=== PATIENT | female | born 1990 | race African-American/Black ===

== ENCOUNTER 2020-04-28 09:11 | Emergency (ER) | payer MEDICAID ==
[~2020-04-28] VITALS: Ht 175.3 cm; Wt 143.3 kg
[2020-04-28 09:15] VITALS: BP 153/94
--- NOTE | 2020-04-28 09:19 | NUR ---
Ambulated to bed 4
--- NOTE | 2020-04-28 09:25 | NUR ---
29 Y/O F C/C HEAD INJURY DUE TO FALL THIS MORNING WHILE SHOWERING. PER PT SLIPPED ON SOAP AND FELL HITTING HEAD ON WALL, DENIES LOC. PT DESCRIBES "WEIRD FEELING, FLUID LIKE SENSATION", PAIN 12/09. PT PRESENTS A/OX4,EUPNIC,AMBULATORY. NEURO WNL. PUPILS PERRLA. NKA. HX ANXIETY ATTACKS. NO RX. NO NVD. SIDE RAIL X1.
[2020-04-28] MEDS ORDERED: ACETAMINOPHEN 325 MG TAB PO ONE (09:30)
--- NOTE | 2020-04-28 10:09 | NUR ---
Pt given specimen cup for collection of urine. Pt ambulated to restroom with steady gait
--- NOTE | 2020-04-28 10:17 | NUR ---
Pt states she is unable to give urine, but will sign waiver stating she is allowing CT to be completed without test completed. CT made aware.
[2020-04-28 11:27] VITALS: BP 145/90
== END 2020-04-28 11:27 | disposition home or self-care (01) ==
LOC: MED 09:11
DX: S00.01XA Abrasion of scalp, initial encounter (principal); S06.9X0A Unspecified intracranial injury without loss of consciousness, initial encounter; W01.198A Fall on same level from slipping, tripping and stumbling with subsequent striking against other object, initial encounter; Y93.89 Activity, other specified; Y92.89 Other specified places as the place of occurrence of the external cause; Y99.8 Other external cause status
CPT/HCPCS: 70450; 99284

== ENCOUNTER 2020-08-04 20:49 | Emergency (ER) | payer MEDICAID ==
[~2020-08-04] VITALS: Ht 172.7 cm; Wt 147.0 kg
[2020-08-04 20:55] VITALS: BP 113/62
--- NOTE | 2020-08-04 20:58 | NUR ---
TO LOBBY A/W BED AMBULATORY
--- NOTE | 2020-08-04 23:05 | NUR ---
SEEN AND EXAMINED BY ROMEL WITH ORDER, CARRIED OUT
[2020-08-04] MEDS ORDERED: KETOROLAC 60 MG/2 ML VIAL IM ONE (23:15)
--- NOTE | 2020-08-04 23:30 | NUR ---
MEDICATED PER ERMDS ORDER, TOLERATED WELL.
[2020-08-05 01:20] VITALS: BP 113/62
--- NOTE | 2020-08-05 01:20 | NUR ---
Patient discharged with v/s stable. Written and verbal after care instructions given and explained. Patient alert, oriented and verbalized understanding of instructions. Ambulatory with steady gait. All questions addressed prior to discharge. ID band removed. Patient advised to follow up with PMD. Rx of MOTRIN,, NORCO given. Patient educated on indication of medication including possible reaction and side effects. Opportunity to ask questions provided and answered.
== END 2020-08-05 01:30 | disposition home or self-care (01) ==
LOC: MED 20:49
DX: R51.9 Headache, unspecified (principal)
CPT/HCPCS: 96372; 99283; J1885

== ENCOUNTER 2021-04-24 23:33 | Emergency (ER) | payer MEDICAID ==
[~2021-04-24] VITALS: Ht 172.7 cm; Wt 147.4 kg
[2021-04-24 23:35] VITALS: BP 120/71
--- NOTE | 2021-04-24 23:35 | NUR ---
TO BED AMBULATORY
--- NOTE | 2021-04-24 23:53 | NUR ---
Dr. Morley examining patient.
[2021-04-25] MEDS ORDERED: FLUC150T PO (00:01)
[2021-04-25] MEDS ORDERED: METR500T1 PO (00:01)
[2021-04-25] MEDS ORDERED: NAPR-54 PO (00:05)
[2021-04-25 00:17] VITALS: BP 120/71
== END 2021-04-25 00:17 | disposition home or self-care (01) ==
LOC: MED 23:33
DX: L73.2 Hidradenitis suppurativa (principal); Z79.899 Other long term (current) drug therapy
CPT/HCPCS: 93005; 99283

== ENCOUNTER 2021-06-18 19:30 | Emergency (ER) | payer MEDICAID ==
[~2021-06-18] VITALS: Ht 172.7 cm; Wt 147.0 kg
[~2021-06-18 19:30] MED LIST: FLUC150T PO; METR500T1 PO; NAPR-54 PO
[2021-06-18 19:36] VITALS: BP 112/68
--- NOTE | 2021-06-18 21:32 | NUR ---
PT AMBULATED TO BED #4
--- NOTE | 2021-06-18 21:40 | NUR ---
RECEIVED IN BED 4 WITH C/O BILATERAL UNDERARM ABSCESS X 1 MONTH ON RIGHT AND 3 YEARS ON RIGHT. RECEIVED BACTRIM LAST WEEK WHILE IN [place]. AFEBRILE. PT STATES SHE HAS BEEN UNDER A LOT OF STRESS AND MIGHT BE EXPERIENCING ANXIETY, PT SAYS SHE HAS SLIGHT TIGHTNESS IN CHEST AND HAS ABDOMINAL PAIN
--- NOTE | 2021-06-18 22:02 | NUR ---
DR GASPAR AT BEDSIDE FOR EXAM
--- NOTE | 2021-06-18 23:19 | NUR ---
Patient discharged with v/s stable. Written and verbal after care instructions given and explained. Patient verbalized understanding. Ambulatory with steady gait. All questions addressed prior to discharge. Advised to follow up with PMD.
[2021-06-18 23:30] VITALS: BP 134/78
== END 2021-06-18 23:19 | disposition home or self-care (01) ==
LOC: MED 19:30
DX: L73.2 Hidradenitis suppurativa (principal); Z79.1 Long term (current) use of non-steroidal anti-inflammatories (NSAID); Z79.899 Other long term (current) drug therapy; Z79.2 Long term (current) use of antibiotics
CPT/HCPCS: 99282

== ENCOUNTER 2021-11-17 13:40 | Emergency (ER) | payer MEDICAID ==
[~2021-11-17] VITALS: Ht 172.7 cm; Wt 139.7 kg
[2021-11-17 13:49] VITALS: BP 138/84
--- NOTE | 2021-11-17 14:01 | NUR ---
apple juice given for 72 blood glucose pt states she only had some tuna and crackers today
[2021-11-17] MEDS ORDERED: hydrOXYzine PAMOATE 25 MG CAP PO ONE (14:35)
--- NOTE | 2021-11-17 15:10 | NUR ---
31yo F PT IS AAOX4 AND C/O OF DIZZINESS AND LIGHT HEADEDNESS. PT FEELS "LIKE SHES ABOUT TO PASS OUT " PT STATES FEELING ANXIOUS AND IS CURRENTLY SEEING THERAPIST TO HELP COPE WITH ANXIETY. PT DENIES SOB . PT STATES SHE USUALLY EATS WELL BUT HAS EATEN LESS THAN USUAL TODAY DUE TO LIGHTHEADEDNESS. PT STATES HAVING EPISODES OF LIGHT PAIN THROUGHOUT BODY BUT CURRENTLY HAS NO PAIN. PT DENIES FEVER OR D/V. NKA
[2021-11-17 15:12] LABS: BASOPHILS % (AUTO) 0.3 % (0.0-2.0); EOSINOPHILS % (AUTO) 0.6 % (0.0-4.0); HEMATOCRIT 40.6 % (36-48); HEMOGLOBIN 13.4 g/dL (12.0-16.0); LYMPHOCYTES # (AUTO) 2.7 K/uL (2.5-16.5); LYMPHOCYTES % (AUTO) 39.4 % (20.5-51.1); MEAN CORPUSCULAR HEMOGLOBIN 29 pg (27-31); MEAN CORPUSCULAR HGB CONC 33 g/dL (33-37); MEAN CORPUSCULAR VOLUME 87.2 fL (80-94); MONOCYTES # (AUTO) 0.3 K/uL (0.8-1.0); MONOCYTES % (AUTO) 4.3 % (1.7-9.3); NEUTROPHILS # (AUTO) 3.8 K/uL (1.8-7.7); NEUTROPHILS % (AUTO) 55.4 % (42.2-75.2); PLATELET COUNT (AUTO) 219 K/uL (140-450); RED BLOOD CELL COUNT(AUTO) 4.66 MIL/uL (4.20-5.40); RED CELL DISTRIBUTION WIDTH 15.1 % (11.6-13.7)
--- NOTE | 2021-11-17 15:20 | NUR ---
31/F BIB SELF WITH C/O DIZZINESS, NAUSEA AND LIGHT HEADEDNESS FOR "MONTHS" BUT STATES WORSENING OVER THE LAST 3 DAYS. PATIENT STATES SHE HAS BEEN HAVING FEELINGS OF ANXIETY, STATING SHE HAS SEEN A THERAPIST TO AID. PATIENT DENIES CP, SOB, V/D.
[2021-11-17 16:06] LABS: ALBUMIN 3.5 g/dL (3.4-5.0); ANION GAP 11.8 (8-16); ASPARTATE AMINOTRANSFERASE 13 U/L (15-37); CHLORIDE 104 mmol/L (98-107); CREATININE 0.8 mg/dL (0.6-1.3); GFR ARICAN-AMERICAN 108 mL/min (>90); GLUCOSE 86 mg/dL (74-106); POTASSIUM 3.8 mmol/L (3.5-5.1); SODIUM SERUM 138 mmol/L (136-145); THYROID STIMULATING HORMONE 1.23 uIU/mL (0.34-3.74); TOTAL BILIRUBIN 0.5 mg/dL (0.0-1.0); UREA NITROGEN, BLOOD 7 mg/dL (7-18)
--- NOTE | 2021-11-17 16:20 | NUR ---
DR RIVERA AT BEDSIDE
[2021-11-17] MEDS ORDERED: MELA5SGL PO (16:35)
[2021-11-17] MEDS ORDERED: PANT40EC PO (16:35)
[2021-11-17 17:53] LABS: BILIRUBIN,URINE NEGATIVE (NEGATIVE); BLOOD, URINE NEGATIVE (NEGATIVE); COLOR,URINE YELLOW (YELLOW); LEUKOCYTE ESTERASE ,URINE NEGATIVE (NEGATIVE); NITRITE, URINE NEGATIVE (NEGATIVE); UGLUCOSE NEGATIVE (NEGATIVE)
[2021-11-17 17:55] LABS: APPEARANCE,URINE CLEAR (CLEAR)
[2021-11-17 18:24] VITALS: BP 134/90
--- NOTE | 2021-11-17 18:25 | NUR ---
Patient discharged with v/s stable. Written and verbal after care instructions ABOUT LIVING WITH ANXIETY AND DIZZINESS given and explained. Patient alert, oriented and verbalized understanding of instructions. Ambulatory with steady gait. All questions addressed prior to discharge. ID band removed. Patient advised to follow up with PMD. Rx of MELATONIN AND PROTONIX given. Patient educated on indication of medication including possible reaction and side effects. Opportunity to ask questions provided and answered.
--- NOTE | 2021-11-17 18:26 | NUR ---
The patient's care was reviewed and supervised by Kiki Saravia RN.
== END 2021-11-17 18:24 | disposition home or self-care (01) ==
LOC: MED 13:40
DX: R42 Dizziness and giddiness (principal); F43.0 Acute stress reaction; F41.9 Anxiety disorder, unspecified; M25.511 Pain in right shoulder; M54.50 Low back pain, unspecified
CPT/HCPCS: 36415; 80053; 81003; 81025; 84443; 84484; 85025; 93005; 99285; Q0177

== ENCOUNTER 2021-11-18 08:43 | Emergency (ER) | payer MEDICAID ==
[~2021-11-18] VITALS: Ht 172.7 cm; Wt 139.8 kg
[~2021-11-18 08:43] MED LIST changes: +MELA5SGL PO; +PANT40EC PO
[2021-11-18 08:53] VITALS: BP 126/63
--- NOTE | 2021-11-18 08:57 | NUR ---
PT AMBULATED TO BED 07.
--- NOTE | 2021-11-18 09:22 | NUR ---
marcelino wen evaluating pt at bedside at this time
--- NOTE | 2021-11-18 09:36 | NUR ---
31 y/o female, c/o feeling dizzy, pt was previous seen yesterday for same c/o and would like a recheck. skin is pink/warm/dry. a&o x4 with even and steady gait. lungs clear bl, heart rate even and regular. pt denies dysuria, hematuria, urinary frequency or retention, or anyone sick in the household with the same symptoms. pt denies any fever, cp, sob, or cough at this time. pt states pain is 0/10 at this time. vss. patient positioned for comfort. hob elevated. bed down. ermd made aware of pt. pmh: gastritis, anxiety nka
--- NOTE | 2021-11-18 09:37 | NUR ---
Chart checked and completed. The patient's care was reviewed and supervised by Juliet Zendejas, RN, RN.
[2021-11-18 09:43] VITALS: BP 126/63
== END 2021-11-18 09:36 | disposition home or self-care (01) ==
LOC: MED 08:43
DX: R42 Dizziness and giddiness (principal); G47.00 Insomnia, unspecified; F41.9 Anxiety disorder, unspecified; Z79.899 Other long term (current) drug therapy; Z79.1 Long term (current) use of non-steroidal anti-inflammatories (NSAID); Z79.2 Long term (current) use of antibiotics
CPT/HCPCS: 99281

== ENCOUNTER 2021-11-19 21:00 | Emergency (ER) | payer MEDICAID ==
[~2021-11-19] VITALS: Ht 172.7 cm; Wt 140.6 kg
[2021-11-19 21:18] VITALS: BP 107/48
[2021-11-19 22:40] LABS: BASOPHILS % (AUTO) 0.7 % (0.0-2.0); EOSINOPHILS # (AUTO) 0.1 K/uL (0-0.4); EOSINOPHILS % (AUTO) 0.8 % (0.0-4.0); HEMATOCRIT 39.7 % (36-48); LYMPHOCYTES # (AUTO) 2.5 K/uL (2.5-16.5); LYMPHOCYTES % (AUTO) 37.1 % (20.5-51.1); MEAN CORPUSCULAR HEMOGLOBIN 29 pg (27-31); MEAN CORPUSCULAR HGB CONC 33 g/dL (33-37); MEAN CORPUSCULAR VOLUME 87.7 fL (80-94); MONOCYTES # (AUTO) 0.4 K/uL (0.8-1.0); NEUTROPHILS # (AUTO) 3.8 K/uL (1.8-7.7); NEUTROPHILS % (AUTO) 55.4 % (42.2-75.2); PLATELET COUNT (AUTO) 239 K/uL (140-450); RED BLOOD CELL COUNT(AUTO) 4.52 MIL/uL (4.20-5.40); RED CELL DISTRIBUTION WIDTH 14.9 % (11.6-13.7); WHITE BLOOD COUNT (AUTO) 6.8 K/uL (4.8-10.8)
[2021-11-19 22:51] LABS: ANION GAP 11.2 (8-16); CARBON DIOXIDE 26.9 mmol/L (21-32); CREATININE 0.9 mg/dL (0.6-1.3); POTASSIUM 4.1 mmol/L (3.5-5.1)
[2021-11-20 02:14] VITALS: BP 110/56
== END 2021-11-20 02:14 | disposition home or self-care (01) ==
LOC: MED 21:00
DX: R42 Dizziness and giddiness (principal); R53.1 Weakness; F41.9 Anxiety disorder, unspecified; Z79.899 Other long term (current) drug therapy
CPT/HCPCS: 36415; 70496; 70498; 80048; 81025; 82607; 84443; 85025; 93005; 99285; Q9967

== ENCOUNTER 2021-12-04 07:51 | Emergency (ER) | payer MEDICAID ==
[~2021-12-04] VITALS: Ht 172.7 cm; Wt 141.1 kg
[2021-12-04 08:12] VITALS: BP 139/77
--- NOTE | 2021-12-04 08:12 | NUR ---
pt ambulated to bed 12 with son
--- NOTE | 2021-12-04 08:26 | NUR ---
DR VENCES AT BEDSIDE FOR EVAL
--- NOTE | 2021-12-04 08:33 | NUR ---
31 y/o female, c/o cough that started 5 days ago. denies fevers, sob, cp or n/v/d. son is sick at home with same symptoms. PT STATES SHE HAS PAIN SOMETIMES AT A 6/10 IN HER CHEST. PRODUCTIVE COUGH WITH GREENISH/WHITE SPUTUM. SINUS PRESSURE THAT SHE CAN BARELY KEEP HER EYES OPEN OMETIMES. IS TAKING MEDICATION AT HOME WITH LITTLE RELIEF. PT A&OX4, NO OTHER COMPLAINTS OF PAIN. RESTING IN BED. pmh: denies nka med: theraflu
[2021-12-04] MEDS ORDERED: AMOX-1230 PO (09:02)
[2021-12-04 09:12] VITALS: BP 139/77
--- NOTE | 2021-12-04 09:13 | NUR ---
Patient discharged with v/s stable. Written and verbal after care instructions given and explained. Patient alert, oriented and verbalized understanding of instructions. Ambulatory with steady gait. All questions addressed prior to discharge. ID band removed. Patient advised to follow up with PMD. Rx of AMOXICILLIN/POTASSIUM CLAV given. Patient educated on indication of medication including possible reaction and side effects. Opportunity to ask questions provided and answered.
== END 2021-12-04 09:12 | disposition home or self-care (01) ==
LOC: MED 07:51
DX: J01.90 Acute sinusitis, unspecified (principal); Z20.822 Contact with and (suspected) exposure to COVID-19; Z79.899 Other long term (current) drug therapy; Z79.1 Long term (current) use of non-steroidal anti-inflammatories (NSAID); Z79.2 Long term (current) use of antibiotics
CPT/HCPCS: 99283